=== PATIENT | female | born 1990 | race African-American/Black ===

== ENCOUNTER 2017-02-11 17:52 | Emergency (ER) | payer MEDICAID ==
[2017-02-11] MEDS ORDERED: Albuterol/Ipratropium Neb 3 ML AERS HHN PRN (18:01)
--- NOTE | 2017-02-11 18:01 | ED Physician Chart ---
Chief Complaint/HPI - Patient Information Date Seen:: 02/11/17 Time Seen:: 17:55 Chief Complaint:: Dyspnea with wheeze since about 3 pm today. History of Present Illness:: Brought in by ambulance for the above reason. Pt has h/o asthma but has been out of the albuterol inhaler that she usually uses for wheezing or dyspnea. No fever or cough. Pt has been taking po well without N/V/D. No lightheadedness. No other bodily pain or discomfort. Allergies:: NKA Vitals:: see Nurse Note. Historian:: Patient Family MD/PCP:: unknown LMP:: 01/16/17 Review:: Nurse's Note Reviewed Review of Systems - Review of Systems General/Constitutional: No fever, No chills, No weight loss, No weakness, No diaphoresis, No edema, No loss of appetite Skin: No skin lesions, No rash, No bruising Head: No headache, No light-headedness Eyes: No loss of vision, No pain, No diplopia ENT: No earache, No nasal drainage, No sore throat, No tinnitus Neck: No neck pain, No swelling, No thyromegaly, No stiffness, No mass noted Cardio Vascular: No chest pain, No palpitations, No PND, No orthopnea, No edema Pulmonary: SOB, No cough, Wheezing GI: No nausea, No vomiting, No diarrhea, No pain, No melena, No hematochezia, No constipation, No hematemesis G/U: No dysuria, No frequency, No hematuria Consultant Nurse: No vaginal discharge, No abnormal vaginal bleed Musculoskeletal: No bone or joint pain, No back pain, No muscle pain Endocrine: No polyuria, No polydipsia Psychiatric: No prior psych history Hematopoietic: No bruising, No lymphadenopathy Allergic/Immuno: No urticaria, No angioedema Neurological: No syncope, No focal symptoms, No weakness, No paresthesia, No headache, No dizziness, No confusion Past Medical History - Past Medical History Past Medical History: Asthma/COPD, Other (chronic anemia, on iron supplementation.) Family History: Diabetes Melitus (MGM) Social History: Smoker (1/ ppd. Pt has been informed about health risks associated with chronic tobacco use and has been advised to quit. Pt has been encouraged to enroll in a smoking cessation program. Pt acknowledges understanding.), Alcohol (rare.), Illicit Drug Use (marijuana. Pt has been informed about health risks associated with illicit drug use and has been advised to quit. Pt acknowledges understanding.), Single, Other (lives with a friend.) Employment:: unemployed. Surgical History: (x 5 with last one in 08/2015) Psychiatricy History: None Medication: Reviewed Family Medical History - Family Member Mother History Unknown: Yes Physical Exam - Physical Examination General/Constitutional: Awake, Well-developed, well-nourished, Alert, GCS 15, Non-toxic appearing, Ambulatory Other Gen/Cons comments:: Speaks clearly but with mild respiratory distress. Head: Atraumatic Eyes: Lids, conjuctiva normal, PERRL, EOMI Skin: Nl inspection, No rash, No skin lesions, No ecchymosis, Well hydrated, No lymphadenopathy ENMT: External ears, nose nl, Nasal exam nl, Oropharynx nl Neck: Nontender, Full ROM w/o pain, No JVD, No nuchal rigidity, No mass, No stridor Respiratory: Nl effort/Exclusion Other Respiratory comments:: Mild diffuse exp. wheeze. No rales. Cardio Vascular: RRR, No murmur, gallop, rubs GI: No tenderness/rebounding/guarding, No organomegaly, Normal BS's, Nondistended Other GI comments:: Abdomen is soft. Extremities: No tenderness or effusion, Full ROM, normal strength in all extremities, No edema Neuro/Psych: Alert/oriented (oriented x 3), Mood normal, Normal gait, No focal deficits Labs/Radiology/EKG Results - Lab Results Results: Laboratory Tests 02/11/17 02/11/17 02/11/17 18:18 18:18 18:18 WBC 9.1 RBC 4.32 Hgb 8.8 L Hct 28.5 L MCV 65.8 L MCH 20.4 L MCHC Differential 31.0 RDW 17.7 Plt Count 266 MPV 8.3 Neutrophils (Manual) 76 Lymphocytes 19 L Monocytes 2 Eosinophils 3 Platelet Estimate ADEQUATE Polychromasia 1+ Anisocytosis 1+ Microcytosis 3+ RBC Morph Micro Appear ABNORMAL PT 10.6 INR 1.02 PTT (Actin FS) 19.2 L Sodium 135 L Potassium 3.3 L Chloride 106 Carbon Dioxide 25.2 Anion Gap 7.1 BUN 4 L Creatinine 0.7 Est GFR ( Amer) > 60.0 Est GFR (Non-Af Amer) > 60.0 BUN/Creatinine Ratio 5.7 Glucose 170 H Calcium 9.0 Laboratory Last Values WBC 9.1 Th/cmm (4.8-10.8) 02/11/17 18:18 RBC 4.32 Mil/cmm (3.80-5.10) 02/11/17 18:18 Hgb 8.8 gm/dL (11.7-15.5) L 02/11/17 18:18 Hct 28.5 % (35.0-45.0) L 02/11/17 18:18 MCV 65.8 fl (81-100) L 02/11/17 18:18 MCH 20.4 pg (27.0-31.0) L 02/11/17 18:18 MCHC Differential 31.0 pg (28.0-36.0) 02/11/17 18:18 RDW 17.7 % (11.5-20.0) 02/11/17 18:18 Plt Count 266 Th/cmm (150-400) 02/11/17 18:18 MPV 8.3 fl 02/11/17 18:18 Neutrophils (Manual) 76 % (40-80) 02/11/17 18:18 Lymphocytes 19 % (20-50) L 02/11/17 18:18 Monocytes 2 % (2-10) 02/11/17 18:18 Eosinophils 3 % (0-5) 02/11/17 18:18 Platelet Estimate ADEQUATE (NORMAL) 02/11/17 18:18 Polychromasia 1+ 02/11/17 18:18 Anisocytosis 1+ 02/11/17 18:18 Microcytosis 3+ 02/11/17 18:18 RBC Morph Micro Appear ABNORMAL (NORMAL) 02/11/17 18:18 PT 10.6 SECONDS (9.5-11.5) 02/11/17 18:18 INR 1.02 (0.5-1.4) 02/11/17 18:18 PTT (Actin FS) 19.2 SECONDS (26.0-38.0) L 02/11/17 18:18 Sodium 135 mEq/L (136-145) L 02/11/17 18:18 Potassium 3.3 mEq/L (3.5-5.1) L 02/11/17 18:18 Chloride 106 mEq/L (98-107) 02/11/17 18:18 Carbon Dioxide 25.2 mEq/L (21.0-31.0) 02/11/17 18:18 Anion Gap 7.1 (7.0-16.0) 02/11/17 18:18 BUN 4 mg/dL (7-25) L 02/11/17 18:18 Creatinine 0.7 mg/dL (0.6-1.2) 02/11/17 18:18 Est GFR ( Amer) > 60.0 ml/min (>90) 02/11/17 18:18 Est GFR (Non-Af Amer) > 60.0 ml/min 02/11/17 18:18 BUN/Creatinine Ratio 5.7 02/11/17 18:18 Glucose 170 mg/dL (70-105) H 02/11/17 18:18 Calcium 9.0 mg/dL (8.6-10.3) 02/11/17 18:18 Urine Test NEGATIVE 02/11/17 19:15 Laboratory Last Values WBC 9.1 Th/cmm (4.8-10.8) 02/11/17 18:18 RBC 4.32 Mil/cmm (3.80-5.10) 02/11/17 18:18 Hgb 8.8 gm/dL (11.7-15.5) L 02/11/17 18:18 Hct 28.5 % (35.0-45.0) L 02/11/17 18:18 MCV 65.8 fl (81-100) L 02/11/17 18:18 MCH 20.4 pg (27.0-31.0) L 02/11/17 18:18 MCHC Differential 31.0 pg (28.0-36.0) 02/11/17 18:18 RDW 17.7 % (11.5-20.0) 02/11/17 18:18 Plt Count 266 Th/cmm (150-400) 02/11/17 18:18 MPV 8.3 fl 02/11/17 18:18 Neutrophils (Manual) 76 % (40-80) 02/11/17 18:18 Lymphocytes 19 % (20-50) L 02/11/17 18:18 Monocytes 2 % (2-10) 02/11/17 18:18 Eosinophils 3 % (0-5) 02/11/17 18:18 Platelet Estimate ADEQUATE (NORMAL) 02/11/17 18:18 Polychromasia 1+ 02/11/17 18:18 Anisocytosis 1+ 02/11/17 18:18 Microcytosis 3+ 02/11/17 18:18 RBC Morph Micro Appear ABNORMAL (NORMAL) 02/11/17 18:18 PT 10.6 SECONDS (9.5-11.5) 02/11/17 18:18 INR 1.02 (0.5-1.4) 02/11/17 18:18 PTT (Actin FS) 19.2 SECONDS (26.0-38.0) L 02/11/17 18:18 Sodium 135 mEq/L (136-145) L 02/11/17 18:18 Potassium 3.3 mEq/L (3.5-5.1) L 02/11/17 18:18 Chloride 106 mEq/L (98-107) 02/11/17 18:18 Carbon Dioxide 25.2 mEq/L (21.0-31.0) 02/11/17 18:18 Anion Gap 7.1 (7.0-16.0) 02/11/17 18:18 BUN 4 mg/dL (7-25) L 02/11/17 18:18 Creatinine 0.7 mg/dL (0.6-1.2) 02/11/17 18:18 Est GFR ( Amer) > 60.0 ml/min (>90) 02/11/17 18:18 Est GFR (Non-Af Amer) > 60.0 ml/min 02/11/17 18:18 BUN/Creatinine Ratio 5.7 02/11/17 18:18 Glucose 170 mg/dL (70-105) H 02/11/17 18:18 Calcium 9.0 mg/dL (8.6-10.3) 02/11/17 18:18 Urine Test NEGATIVE 02/11/17 19:15 Urine Opiates Screen NEGATIVE (NEGATIVE) 02/11/17 19:15 Urine Methadone Screen NEGATIVE (NEGATIVE) 02/11/17 19:15 Ur Barbiturates Screen NEGATIVE (NEGATIVE) 02/11/17 19:15 Ur Tricyclics Screen NEGATIVE (NEGATIVE) 02/11/17 19:15 Ur Phencyclidine Scrn NEGATIVE (NEGATIVE) 02/11/17 19:15 Amphetamines Screen POSITIVE (NEGATIVE) H 02/11/17 19:15 U Methamphetamines Scrn POSITIVE (NEGATIVE) H 02/11/17 19:15 U Benzodiazepines Scrn NEGATIVE (NEGATIVE) 02/11/17 19:15 U Cocaine Metab Screen NEGATIVE (NEGATIVE) 02/11/17 19:15 U Cannabinoids Screen POSITIVE (NEGATIVE) H 02/11/17 19:15 - Radiology Results Results: PCXR: Based on my interpretation, NAD. Official report is pending. ED Septic Shock - . Is Septic Shock (SBP<90, OR Lactate>4 mmol\L) present?: No Reassessment (Disposition) - Reassessment Reassessment:: 1834 Pt has been repeatedly evaluated. Pt now breathes comfortably after HHN. No wheeze. 2019 Pt has remained stable. PCXR just became available. CXR and lab findings have been reviewed with pt. Pt states that she has chronic anemia and the findings on CBC is not unusual for her. Pt denies any chest pain or discomfort. No lightheadedness. No dyspnea or wheeze. Pt denies any bodily pain. Pt states that she is back to her baseline functional and respiratory status. Pt can speak full sentences without a pause. Reexamined pt: COR RRR with VR 94. Lungs clear without wheeze or rales. Pt requests to go home now and does not want further observation/management in hospital. Aftercare instructions have been given. Reassessment Condition:: Improved - Diagnosis Diagnosis:: Exacerbation of asthma due to noncompliance, stable and currently asymptomatic. Chronic anemia, on Fe supplementation, stable and asymptomatic. Mild hypokalemia, stable. Mild hyperglycemia probably related to steroid effect. Stable. Polysubstance abuse with tobacco, amphetamine and marijuana. Pt again has been informed about the health risks associated with illicit drug and tobacco use. Pt again has been advised to stop substance abuse and to enroll in a drug detox and a smoking cessation program. Pt acknowledges understanding. - Aftercare/Follow up Instructions Aftercare/Follow-Up Instructions:: Refer to Discharge Instructions Notes:: Bedrest today. Continue present care and medications. Increase oral intake of potassium rich foodstuffs such as banana, etc. Pt has been instructed to stop tobacco use and illicit drug use. Pt has been encouraged to enroll in a drug rehab program and a smoking cessation program. F/U with Dr. Deras or PCP of pt's choice in one day for recheck and repeat lab studies: CBC, BMP. Return to ER immediately if condition worsens or if any further questions/problems. Medication Prescribed:: Combivent inhaler 2 puffs q6h prn dyspnea or wheeze. D-one canister R-0 Prednisone 10 mg tab 5 tabs po daily for 2 days, then 3 tabs po daily for 2 days , then 2 tabs po daily for one day, then one tab po daily for one day, then stop. D-19 R-0 - Patient Disposition Discharge/Transfer:: Home Time:: 20:45 Condition at Disposition:: Stable, Improved ED Discharge Plan - Patient Disposition Admit/Discharge/Transfer: PT DISCHARGED HOME Condition at Disposition: Improved Instructions: Hypokalemia, Asthma, Adult, [id number] Additional Instructions: follow up with primary doctor. return to any er for worsening symptoms.
[2017-02-11] MEDS ORDERED: Albuterol/Ipratropium Neb 3 ML AERS HHN ONE (18:02)
[2017-02-11 18:23] LABS: HEMATOCRIT 28.5 % (35.0-45.0); HEMOGLOBIN 8.8 gm/dL (11.7-15.5); MEAN CORPUSCULAR HEMOGLOBIN 20.4 pg (27.0-31.0); MEAN PLATELET VOLUME 8.3 fl; PLATELET COUNT 266 Th/cmm (150-400); RED BLOOD COUNT 4.32 Mil/cmm (3.80-5.10); RED CELL DISTRIBUTION WIDTH 17.7 % (11.5-20.0); WHITE BLOOD COUNT 9.1 Th/cmm (4.8-10.8)
[2017-02-11 18:30] LABS: MEAN CELL VOLUME 65.8 fl (81-100)
[2017-02-11 18:37] LABS: INR 1.02 (0.5-1.4); PROTHROMBIN TIME (TEST) 10.6 SECONDS (9.5-11.5)
[2017-02-11 18:39] LABS: ANION GAP 7.1 (7.0-16.0); BUN - UREA NITROGEN 4 mg/dL (7-25); BUN/CREATININE RATIO 5.7; CARBON DIOXIDE 25.2 mEq/L (21.0-31.0); CHLORIDE 106 mEq/L (98-107); CREATININE - SERUM 0.7 mg/dL (0.6-1.2); GLUCOSE 170 mg/dL (70-105); POTASSIUM SERUM 3.3 mEq/L (3.5-5.1); SODIUM SERUM 135 mEq/L (136-145)
[2017-02-11 18:47] LABS: EOSINOPHIL 3 % (0-5); NEUTROPHILS 76 % (40-80); TOTAL CELLS COUNTED 100
[2017-02-11 18:48] LABS: ANISOCYTOSIS 1+
[2017-02-11 18:49] LABS: MICROCYTOSIS 3+; PLATELET ESTIMATE ADEQUATE (NORMAL); POLYCHROMASIA 1+
[2017-02-11] MEDS ORDERED: Potassium Chloride 20 mEq ER Tab PO ONE ×2 (19:11→20:05)
[2017-02-11 20:23] LABS: AMPHETAMINE URINE POSITIVE (NEGATIVE); BARBITURATES URINE NEGATIVE (NEGATIVE); METHADONE URINE NEGATIVE (NEGATIVE)
--- NOTE | 2017-02-12 08:20 | Diagnostic Imaging Report ---
CHEST X-RAY: AP view INDICATION: Dyspnea COMPARISON: None FINDINGS: There is no focal consolidation or pleural effusions The heart is at the upper limits of normal in size. The osseous structures demonstrate no acute abnormalities. IMPRESSION: No focal consolidation identified. No evidence of CHF.
== END 2017-02-11 20:45 | disposition home or self-care (01) ==
LOC: ER 17:52
DX: J45.901 Unspecified asthma with (acute) exacerbation (principal); D64.89 Other specified anemias; E87.6 Hypokalemia; R73.9 Hyperglycemia, unspecified; J44.9 Chronic obstructive pulmonary disease, unspecified; F15.10 Other stimulant abuse, uncomplicated; F12.90 Cannabis use, unspecified, uncomplicated; F17.210 Nicotine dependence, cigarettes, uncomplicated
CPT/HCPCS: 99285; 96374; 94640; 71010; 36415; 80307; 85007; 85027; 85610; 81025; 80048; J2930

== ENCOUNTER 2017-11-21 22:59 | Emergency (ER) | payer MEDICAID ==
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
== END 2017-11-22 00:45 | disposition home or self-care (01) ==
LOC: ER 22:59
DX: S00.85XA Superficial foreign body of other part of head, initial encounter (principal); J45.909 Unspecified asthma, uncomplicated; J44.9 Chronic obstructive pulmonary disease, unspecified; F17.200 Nicotine dependence, unspecified, uncomplicated; W34.010A Accidental discharge of airgun, initial encounter; Y93.89 Activity, other specified; Y92.89 Other specified places as the place of occurrence of the external cause; Y99.8 Other external cause status
CPT/HCPCS: 70100-TC-LT; 81025-TC; Z7502; Z7610